=== PATIENT | female | born 1935 | race Caucasian/White ===

== ENCOUNTER 2022-10-29 19:28 | Observation (INO) | payer OTHER ==
[~2022-10-29] VITALS: Ht 152.4 cm; Wt 57.4 kg
[2022-10-29 20:39] LABS: BASO # 0.1 10^3/uL (0.0-0.2); BASO % 0.4 % (0.0-1.0); EOS # 0.2 10^3/uL (0.0-0.5); EOS % 1.1 % (0.0-3.0); HEMATOCRIT 34.8 % (36.0-47.0); HEMOGLOBIN 11.9 g/dl (12.0-15.5); LYMPH # 1.7 10^3/uL (1.5-5.0); LYMPH % 8.4 % (24.0-44.0); MEAN CORPUSCULAR HEMOGLOBIN 28.8 pg (27.0-33.0); MEAN CORPUSCULAR HGB CONC 34.2 g/dl (32.0-36.5); MEAN CORPUSCULAR VOLUME 84.3 fl (80.0-96.0); MONO # 1.2 10^3/uL (0.0-0.8); MONO % 6.2 % (2.0-8.0); NEUTROPHILS # 16.4 10^3/uL (1.5-8.5); NEUTROPHILS % 82.8 % (36.0-66.0); PLATELET COUNT, AUTOMATED 320 10^3/uL (150-450); RED BLOOD COUNT 4.13 10^6/uL (4.00-5.40); WHITE BLOOD COUNT 19.8 10^3/uL (4.0-10.0)
[2022-10-29 21:05] LABS: ALBUMIN 3.5 G/DL (3.2-5.2); BILIRUBIN,TOTAL 0.7 MG/DL (0.3-1.2); CALCIUM LEVEL 8.6 MG/DL (8.3-10.6); CREATININE FOR GFR 1.18 MG/DL (0.55-1.30); GLOMERULAR FILTRATION RATE 46.2 (>32); POTASSIUM SERUM 4.8 MMOL/L (3.5-5.1); TOTAL PROTEIN 6.4 G/DL (5.7-8.2)
[2022-10-29] MEDS ORDERED: NS 500 ML IV ONE (21:20)
[2022-10-29] MEDS ORDERED: MORPHINE 2 MG/ML 1ML VIAL IV ONE (21:20)
[2022-10-29] MEDS ORDERED: ISOVUE-370 76% 100ML VIAL As Ordered ONE (21:22)
[2022-10-29 21:40] LABS: MAGNESIUM LEVEL 1.6 MG/DL (1.8-2.4)
[2022-10-29] MEDS ORDERED: DILT120T PO (22:12)
[2022-10-29] MEDS ORDERED: ASPI81TA26 PO (22:12)
[2022-10-29] MEDS ORDERED: LISI5TAB11 PO (22:12)
[2022-10-29] MEDS ORDERED: NORT10CA2 PO (22:12)
[2022-10-29] MEDS ORDERED: ATEN25TA PO (22:12)
[2022-10-29] MEDS ORDERED: atenoloL 25 MG TAB PO ONE (22:40)
[2022-10-29] MEDS ORDERED: PERCOCET 5MG/325MG TAB PO ONE (22:40)
[2022-10-29] MEDS ORDERED: lisinopriL 5 MG TAB PO ONE (22:40)
[2022-10-29 23:33] LABS: FREE T4 1.04 NG/DL (0.89-1.76); THYROID STIMULATING HORMONE 2.883 uIU/ML (0.55-4.78)
[2022-10-29 23:45] LABS: CREATININE,RANDOM URINE 30.2 MG/DL
[2022-10-30 00:20] LABS: RSV AMPLIFICATION NEGATIVE (NEGATIVE)
[2022-10-30] MEDS ORDERED: NITR0.4S14 SL (00:21)
[2022-10-30] MEDS ORDERED: MULTTAB86 PO (00:21)
[2022-10-30] MEDS ORDERED: OMEGCAP4 PO (00:21)
[2022-10-30] MEDS ORDERED: DILT120T11 PO (00:21)
[2022-10-30] MEDS ORDERED: CALC1TAB63 PO (00:21)
[2022-10-30] MEDS ORDERED: ACET-910 PO (00:23)
[2022-10-30] MEDS ORDERED: ALLO100T PO (00:26)
[2022-10-30] MEDS ORDERED: HOME MED LIST COMPLETE! XX SCH (00:30)
[2022-10-30] MEDS ORDERED: ACETAMINOPHEN TAB 650MG DOSE (2X325MG) PO PRN (00:45)
[2022-10-30] MEDS ORDERED: NITROGLYCERIN 0.4MG SUBL TABLET SL PRN (00:45)
[2022-10-30] MEDS ORDERED: oxyCODONE 5MG TAB PO PRN (00:45)
[2022-10-30 00:57] LABS: APPEARANCE, URINE CLEAR (CLEAR); BACTERIA, URINE AUTO NEGATIVE (NEGATIVE); BILIRUBIN, URINE AUTO NEGATIVE (NEGATIVE); BLOOD, URINE BLOOD 1+ (NEGATIVE); COLOR, URINE YELLOW (YELLOW); GLUCOSE, URINE (UA) AUTO NEGATIVE (NEGATIVE); KETONE, URINE AUTO NEGATIVE (NEGATIVE); LEUKOCYTE ESTERASE, URINE AUTO NEGATIVE (NEGATIVE); NITRITE, URINE AUTO NEGATIVE (NEGATIVE); PROTEIN, URINE AUTO NEGATIVE (NEGATIVE); RBC, URINE AUTO 0 /HPF (0-3); SPECIFIC GRAVITY URINE AUTO 1.006 (1.002-1.035); SQUAMOUS EPITHELIAL CELL UR AU 0 /HPF (0-6); UROBILINOGEN, URINE AUTO 0.2 mg/dL (0.0-2.0); WBC, URINE AUTO 0 /HPF (0-3)
[2022-10-30 01:50] VITALS: BP 200/82; TEMP 96.6; O2SAT 99
[2022-10-30 03:26] VITALS: BP 182/78; TEMP 97.1; O2SAT 98
[2022-10-30 07:56] VITALS: BP 158/66; TEMP 96.9; O2SAT 98
[2022-10-30] MEDS: dilTIAZem 120MG **CD** CAPSULE PO SCH (08:09)
[2022-10-30] MEDS: atenoloL 25 MG TAB PO SCH (08:09)
[2022-10-30] MEDS: lisinopriL 5 MG TAB PO SCH (08:09)
[2022-10-30] MEDS: allopurinoL 100 MG TAB PO SCH (09:00)
[2022-10-30 12:23] LABS: CREATININE FOR GFR 1.13 MG/DL (0.55-1.30); GLOMERULAR FILTRATION RATE 48.6 (>32); POTASSIUM SERUM 4.7 MMOL/L (3.5-5.1)
[2022-10-30] MEDS: traMADol 50 MG TAB PO PRN (13:04)
[2022-10-30 16:03] VITALS: BP 137/64; TEMP 96.5; O2SAT 97
[2022-10-30 19:57] VITALS: BP 125/58; TEMP 97.6; O2SAT 95
[2022-10-30] MEDS ORDERED: ASPIRIN 81MG ENTERIC TABLET PO SCH (21:00)
[2022-10-30] MEDS ORDERED: NORTRIPTYLINE 10 MG CAP PO SCH (21:00)
[2022-10-31 03:35] VITALS: BP 127/60; TEMP 97.5; O2SAT 93
[2022-10-31 05:19] LABS: HEMATOCRIT 30.7 % (36.0-47.0); HEMOGLOBIN 10.2 g/dl (12.0-15.5); MEAN CORPUSCULAR HEMOGLOBIN 28.3 pg (27.0-33.0); MEAN CORPUSCULAR HGB CONC 33.2 g/dl (32.0-36.5); MEAN CORPUSCULAR VOLUME 85.3 fl (80.0-96.0); PLATELET COUNT, AUTOMATED 292 10^3/uL (150-450)
[2022-10-31 05:36] LABS: CALCIUM LEVEL 8.2 MG/DL (8.3-10.6); CREATININE FOR GFR 1.16 MG/DL (0.55-1.30); GLOMERULAR FILTRATION RATE 47.2 (>32); MAGNESIUM LEVEL 1.8 MG/DL (1.8-2.4); POTASSIUM SERUM 4.7 MMOL/L (3.5-5.1)
[2022-10-31 08:26] VITALS: BP 127/65; TEMP 98.1; O2SAT 94
[2022-10-31] MEDS: allopurinoL 100 MG TAB PO SCH (08:47)
[2022-10-31] MEDS ORDERED: METAMUCIL (PSYLLIUM) PACKET PO SCH (09:00)
[2022-10-31] MEDS ORDERED: MIRALAX *UNIT DOSE* 17GM PACKET PO SCH (09:00)
[2022-10-31 09:07] VITALS: BP 127/65
[2022-10-31] MEDS: dilTIAZem 120MG **CD** CAPSULE PO SCH (09:07)
[2022-10-31] MEDS: lisinopriL 5 MG TAB PO SCH (09:08)
[2022-10-31] MEDS: atenoloL 25 MG TAB PO SCH (09:08)
[2022-10-31] MEDS: SODIUM CHLORIDE 1 GM TAB PO SCH ×2 (10:48→15:53)
[2022-10-31] MEDS ORDERED: SODI1TAB6 PO ×2 (13:06→13:14)
[2022-10-31] MEDS ORDERED: LIDO1CRE2 TOP ×2 (13:06→13:14)
[2022-10-31] MEDS: traMADol 50 MG TAB PO PRN (15:55)
== END 2022-10-31 17:30 | disposition home or self-care (01) ==
LOC: M ED 19:28 → M ED INP 10-30 00:41 → M PCU 10-30 01:45
PROVIDERS: ADMIT Internal Medicine; ATTEND Internal Medicine
DX: S22.42XA Multiple fractures of ribs, left side, initial encounter for closed fracture (principal); R42 Dizziness and giddiness; W01.198A Fall on same level from slipping, tripping and stumbling with subsequent striking against other object, initial encounter; Y92.002 Bathroom of unspecified non-institutional (private) residence as the place of occurrence of the external cause; Y93.E1 Activity, personal bathing and showering; E87.1 Hypo-osmolality and hyponatremia; I16.0 Hypertensive urgency; D72.829 Elevated white blood cell count, unspecified; I25.10 Atherosclerotic heart disease of native coronary artery without angina pectoris; M10.9 Gout, unspecified; R19.7 Diarrhea, unspecified; Z79.899 Other long term (current) drug therapy; Z79.82 Long term (current) use of aspirin
CPT/HCPCS: 36415; 71260; 74177; 80048; 80053; 81001; 82570; 83605; 83735; 83930; 83935; 84295; 84300; 84439; 84443; 84484; 85025; 85027; 87040; 87631; 93005; 96361; 96374; 97161; 97164; 97530; 99284; G0378; Q9967